=== PATIENT | male | born 1965 | race Two or more races ===

== ENCOUNTER 2023-01-19 12:25 | Emergency (ER) | payer MEDICAID, OTHER ==
[~2023-01-19] VITALS: Ht 165.1 cm; Wt 112.2 kg
[2023-01-19 13:49] LABS: Basophils # (auto) 0.1 10 ^3/uL (0-0.2); Basophils % (auto) 0.8 % (0.0-2.0); Eosinophils # (auto) 0.1 10 ^3/uL (0-0.8); Eosinophils % (auto) 0.7 % (0.0-7.0); Hematocrit 45.2 % (41.0-53.0); Hemoglobin 15.3 g/dL (13.5-17.5); Lymphocytes # (auto) 1.4 10 ^3/uL (0.4-5.4); Lymphocytes % (auto) 14.3 % (10.0-50.0); Mean Corpuscular Hemoglobin 29.3 pg (28.0-32.0); Mean Corpuscular Volume 86.4 fL (80.0-100.0); Monocytes # (auto) 0.6 10 ^3/uL (0-1.3); Neutrophils # (auto) 7.6 10 ^3/uL (1.6-8.6); Neutrophils % (auto) 78.2 % (37.0-80.0); Red Blood Cells 5.23 10^6/uL (4.5-5.90); Red Cell Distribution Width 13.3 % (11.8-14.3); White Blood Cell 9.7 10^3/uL (4.4-10.8)
[2023-01-19 14:10] LABS: Albumin 3.5 g/dL (3.4-5.0); Potassium 4.2 mmol/L (3.5-5.1)
[2023-01-19 14:13] LABS: BUN/Creatinine Ratio 18.1 (10.0-20.0); Bilirubin, Total 1.2 mg/dL (0.2-1.0); Total Protein 6.6 g/dL (6.4-8.2)
[2023-01-19] MEDS ORDERED: CYCL-611 PO (15:25)
[2023-01-19] MEDS ORDERED: NAP500T PO (15:25)
[2023-01-19 15:52] VITALS: BP 150/80
== END 2023-01-19 15:53 | disposition home or self-care (01) ==
LOC: EDBD 12:25 → ER 12:25
DX: S16.1XXA Strain of muscle, fascia and tendon at neck level, initial encounter (principal); S80.02XA Contusion of left knee, initial encounter; S80.01XA Contusion of right knee, initial encounter; V49.49XA Driver injured in collision with other motor vehicles in traffic accident, initial encounter; Y93.89 Activity, other specified; Y92.89 Other specified places as the place of occurrence of the external cause; Y99.8 Other external cause status
CPT/HCPCS: 36415; 70450; 71250; 72125; 72131; 73562; 74177; 80053; 85025